=== PATIENT | female | born 1985 | race Hispanic/Latino ===

== ENCOUNTER 2017-04-14 10:28 | Outpatient (CLI) | payer OTHER ==
[2017-04-14 10:41] VITALS: BP 120/69
== END 2017-04-14 12:34 | disposition home or self-care (01) ==
LOC: TRG 10:28
PROVIDERS: ATTEND Obstetrics & Gynecology
DX: O47.1 False labor at or after 37 completed weeks of gestation (principal); Z3A.38 38 weeks gestation of pregnancy
CPT/HCPCS: 59025